=== PATIENT | male | born 1950 | race Caucasian/White ===

== ENCOUNTER 2016-12-24 16:09 | Outpatient (CLI) | payer MEDICARE, OTHER ==
--- NOTE | 2016-12-25 09:01 | XRAY Report ---
LEFT TIBIA AND FIBULA: 12/24/2016 CLINICAL HISTORY: Patient has a palpable nodule in the medial aspect of the distal stahl. This is be ing marked with a BB. COMPARISON: None. FINDINGS: Soft tissues especially in the area of concern within the medial aspect of the distal left leg show no significant abnormality. No calcifications or obvious mass is seen on x-ray exam. If c linically indicated, additional studies such as an ultrasound of the soft tissue nodule could be obta ined for further evaluation. Bones of the left leg appear normal. Large posterior calcaneal spur is seen. Moderate-sized spur is seen emanating from the anterior supe rior aspect of the patella. IMPRESSION: NO SIGNIFICANT ABNORMALITY IS NOTED IN THE SOFT TISSUES OF THE MEDIAL ASPECT OF THE DIST AL LEFT LEG IN THE AREA WHERE PATIENT HAS A PALPABLE NODULE. IF CLINICALLY INDICATED, ADDITIONAL ROBERT DIES SUCH AN ULTRASOUND OF THIS NODULE COULD BE OBTAINED FOR FURTHER EVALUATION. JOB #: [id number] EXT JOB #:[id number]
== END 2016-12-24 16:10 | disposition home or self-care (01) ==
LOC: DI 16:09
PROVIDERS: ATTEND Physician Assistant
DX: R22.42 Localized swelling, mass and lump, left lower limb (principal)